=== PATIENT | male | born 1965 | race Caucasian/White ===

== ENCOUNTER 2025-07-15 06:53 | Emergency (ER) | payer MEDICAID, SELFPAY ==
[2025-07-15 07:10] VITALS: BP 146/93; PULSE 99; RESP 20; TEMP 36.7; O2SAT 97
[2025-07-15 07:21] VITALS: BP 146/93; PULSE 99; RESP 20; TEMP 36.7; O2SAT 97
--- NOTE | 2025-07-15 07:37 | ED.GENADUL_ITS ---
Discharge Plan Disposition Patient Disposition: Home Condition: Stable Discharge Details Clinical Impression: Pancreatic cancer, Ascites, malignant, Abdominal carcinomatosis, Hypokalemia, Anemia Primary Care Provider: Isaura Castellanos ED Provider: Jerica Polk Home Meds and New Rx's Prescriptions: New ondansetron 4 mg tablet,disintegrating 4 mg PO Q8H PRNQty: 30 0RF morphine concentrate 100 mg/5 mL (20 mg/mL) solution 5 - 20 mg PO .q1h - q4h PRNQty: 30 0RF Rx Instructions: Take 5 to 20 mg by mouth every 1-4 hours as needed for severe pain lorazepam 0.5 mg tablet 0.5 mg PO .q2h - q6h PRNQty: 10 0RF Rx Instructions: Take 1 tablet as needed every 2-6 hours for severe anxiety or nausea No Action fentanyl 25 mcg/hr patch 72 hour 1 patch transdermal Q48H Discharge Instructions Instructions: Pancreatic Cancer (DC) Additional Instructions: You were seen in the emergency department today for evaluation for referral to hospice care due to your cancer pain. In our department you do full physical examination performed, and had laboratory studies that did show some anemia as well as a low potassium. You received potassium here in the urgency department, your outpatient provider may want to recheck this and provide you with supplementation as needed. [facility] for your area. They will contact you and I anticipate that you will be admitted to hospice over the weekend or early next week. I did provide you prescriptions for medications to manage pain and nausea to get you through the weekend, and yo u do have a fentanyl patch prescription ready to be picked up. Please follow-up with your primary care provider in the next few days to discuss this visit and any symptoms that change, worsen, or persist. Thank you for allowing us to be part of your care. Discharge Data Discharge Date/Time-TO BE ENTERED AT DEPARTURE: 07/15/25 11:29 HPI General Mode of arrival: ambulatory . Date/Time Provider Initiated Documentation: 07/15/25 06:54 . Limitations to Documentation: no limitations . Information obtained by: patient, family and old records reviewed . HPI Narrative: This is a 60-year-old male patient with a past medical history significant for pancreatic cancer with ascites and carcinomatosis, presenting for evaluation of ongoing cancer pain and requesting assistance in engaging with palliative care. The patient was seen at [facility], and prognosis for his cancer is quite poor. He reports he has been working with his primary care provider, uses ibuprofen and had fentanyl patches for his pain. He was unable to get a refill from his pharmacy on his fentanyl patches and ran out about 3 days ago. He reports that the fentanyl does not seem to be helping, the ibuprofen seems to help the most, he has had some nausea but is able to maintain a small amount of oral intake of fluids. States that the pain stretches across his lower and upper abdomen, has not changed in quality or severity. Has never had any paracentesis, denies fever. Related Data Home Medications ?Medication ?Instructions ?Recorded ?Confirmed fentanyl 25 mcg/hr transdermal 1 patch transdermal Q48 H 07/15/25 07/15/25 patch lorazepam 0.5 mg tablet 0.5 mg PO .q2h - q6h PRN #10 tabs 07/15/25 morphine concentrate 100 mg/5 mL 5 - 20 mg (0.25 - 1 m L) PO .q1h - 07/15/25 (20 mg/mL) oral solution q4h PRN #30 mL ondansetron 4 mg disintegrating 4 mg PO Q8H PRN #30 ta bs 07/15/25 tablet Previous Rx's ?Medication ?Instructions ?Recorded lorazepam 0.5 mg tablet 0.5 mg PO .q2h - q6h PRN #10 tabs 07/15/25 morphine concentrate 100 mg/5 mL 5 - 20 mg (0.25 - 1 m L) PO .q1h - 07/15/25 (20 mg/mL) oral solution q4h PRN #30 mL ondansetron 4 mg disintegrating 4 mg PO Q8H PRN #30 ta bs 07/15/25 tablet Allergies Allergy/AdvReac Type Severity Reaction Status Date / Time No Known Allergies Allergy Unverified 07/15/25 07:14 General Stated Complaint: Abd Prob DANIELA: 4 Exam Narrative Exam Narrative: Gen: Awake and alert, chronically ill-appearing male patient resting in the hospital bed HEENT: Non-icteric sclera Neck: Supple Lungs: No apparent respiratory distress, normal respiratory effort. Lung sounds clear and equal bilaterally CV: Appears well perfused, strong distal pulses, heart with regular rate and rhythm Abdomen: Mildly distended but soft, minimal tenderness to palpation in a generalized distribution without rigidity, rebound, or guarding MSK: Moves 4 extremities without apparent limitation in ROM Skin: Visualized skin without rashes, cyanosis. Neuro: Normal Gait, no obvious focal deficits or facial asymmetry. Speaks in full, clear sentences. Psych: Appropriate for situation. Course Vital Signs Vital signs: Vital Signs Temperature 36.7 C 07/15/25 07:10 Pulse 99 H 07/15/25 07:10 Respiratory Rate 20 07/15/25 07:10 Blood Pressure 146/93 H 07/15/25 07:10 Pulse Oximetry 97 07/15/25 07:10 Temperature 36.7 C 07/15/25 07:21 Temperature Source Oral 07/15/25 07:21 Pulse 99 H 07/15/25 07:21 Respiratory Rate 20 07/15/25 07:21 Blood Pressure 146/93 H 07/15/25 07:21 Blood Pressure Position Sitting 07/15/25 07:21 Pulse Oximetry 97 07/15/25 07:21 Oxygen Delivery Method Room Air 07/15/25 07:21 Oxygen Flow Rate 0 07/15/25 07:21 Pain Level 6 07/15/25 07:21 Medical Decision Making This is a 60-year-old male patient presenting for evaluation of abdominal pain in the setting of pancreatic cancer. Differential includes but is not limited to pain due to his known carcinomatosis and ascites, considered pancreatitis, hepatitis, cholecystitis, appendicitis, bowel obstruction, though these are less consistent with the patient's history of physical examination. I certainly considered metabolic and electrolyte derangements, dehydration, kidney injury. The patient has never had a paracentesis, and does not have fever, making SBP less likely. I will obtain basic labs to include CBC, CMP, magnesium, and will provide the patient with Dilaudid and Zofran for initial symptomatic management. We will consult palliative care while he is here in the emergency department. -I reviewed the patient's laboratory studies, which show no leukocytosis, does note an anemia to 9.2 and no thrombocytopenia. Chemistry panel reveals a hypokalemia to 2.7, which will be repleted orally and intravenously. No evidence of kidney or liver dysfunction, alk phos slightly elevated to 190. I discussed with palliative care and they recommended getting the patient admitted directly to hospice given his life expectancy less than 6 months. The team with [facility] was contacted, and will work on intaking this patient to their team over the weekend. They did provide some recommendations for medications to prescribe to get him through the weekend, including oral morphine, Ativan, and these were sent to the patient's pharmacy. I also sent a prescription for Zofran as this was quite successful in managing his nausea. He was able to take fluids without nausea or vomiting while in the emergency department. At this time, the patient has had a full medical evaluation and is safe for discharge to home. They are hemodynamically stable, ambulatory, and tolerating PO. They are understanding of the follow-up plan and return precautions. They left our facility without incident. Jerica Polk MD [facility] All Active Problems (Updated 07/15/25 @ 10:32 by Jerica Polk MD) Anemia (Chronic) Hypokalemia (Acute) Abdominal carcinomatosis (Acute) Ascites, malignant (Acute) Pancreatic cancer (Acute) Social History Smoking/Tobacco Use Status: Never Smoking risk assessment performed?: Yes Alcohol Intake: never Drug use: Never Do you feel safe at home: Yes Do you feel safe in your relationship?: Yes
[2025-07-15 07:52] LABS: Abs Immature Grans 0.14 10^3/uL (0.0-0.06); HCT 28.7 % (40.0-50.0); HGB 9.2 g/dL (13.5-17.5); Immature Grans % 1.6 %; MCH 24.7 pg (27.0-33.0); MCHC 32.1 % (32.0-36.0); MCV 77 fL (80-95); MPV 10.5 fL (8.0-11.0); Platelet Count 334 10^3/uL (130-400); RBC 3.73 10^6/uL (4.36-5.78); RDW 15.9 % (11.8-14.1); RDW-SD 44.5 fL; WBC 8.99 10^3/uL (4.4-10.8)
[2025-07-15] MEDS: HYDROmorphone 2 MG/ML SYR 1 MG IVP ×2 (07:57→10:02)
[2025-07-15] MEDS: Ondansetron 4 MG/2 ML VIAL IVP ×2 (07:57→10:03)
[2025-07-15 08:07] LABS: ALT 40 U/L (16-63); AST 36 U/L (15-37); Albumin 3.2 g/dL (3.4-5.0); Alkaline Phosphatase 190 U/L (46-116); Anion Gap 10.6 mmol/L (3-11); BUN 17 mg/dL (7-18); Bilirubin, Total 0.8 mg/dL (0.2-1.0); CO2 33.4 mmol/L (21.0-32.0); Calcium 9.0 mg/dL (8.5-10.1); Chloride 91 mmol/L (98-107); Estimated GFR 85.63 (mL/min/1.73m2); Glucose 123 mg/dL (74-106); Magnesium 2.2 mg/dL (1.8-2.4); Sodium 135 mmol/L (136-145); Total Protein 7.9 g/dL (6.4-8.2)
[2025-07-15 08:10] LABS: Potassium 2.7 mmol/L (3.5-5.1)
[2025-07-15] MEDS: Potassium Chloride 20 MEQ TABCR 40 MEQ PO (08:51)
[2025-07-15] MEDS: POTASSIUM CHLORIDE 10 MEQ/100 ML BAG 100 MEQ IV_INF ×2 (08:52→10:05)
[2025-07-15 10:09] VITALS: BP 148/60; PULSE 78; PULSE 79; RESP 22
[2025-07-15 10:10] VITALS: PULSE 84; PULSE 85; RESP 14
[2025-07-15] MEDS: HYDROmorphone 2 MG TAB PO (11:25)
--- NOTE | 2025-07-15 15:27 | NUR.NOTE ---
pts chart accessed to print chart to face to [facility], to get him in STAT the afternoon of 07/10/25Nursing Note:
== END 2025-07-15 11:29 | disposition home or self-care (01) ==
PROVIDERS: Emergency Provider Emergency Medicine; PCP Nurse Practitioner Family
DX: C25.9 Malignant neoplasm of pancreas, unspecified (principal); C76.2 Malignant neoplasm of abdomen; E87.6 Hypokalemia; D64.9 Anemia, unspecified; G89.3 Neoplasm related pain (acute) (chronic); R18.0 Malignant ascites
CPT/HCPCS: 99284 ×2; 96374; 96375; 96376; 80053; 83735; 85025; J1171; J2405; J3480